=== PATIENT | female | born 1970 | race Hispanic/Latino ===

== ENCOUNTER 2021-05-17 14:39 | Inpatient (IN) | payer BC, OTHER ==
[~2021-05-17] VITALS: Ht 180.3 cm; Wt 95.7 kg
[~2021-05-17 14:39] MED LIST: CIPRO500 MG PO; DICLOFENAC POTA50 MG PO; DOXYCYCLINE HY100 MG PO; FLAGYL500 MG PO; HYDROCODON-ACE1 EA11 PO; NORCO 5-325 TA1 EACH PO; STOOL SOFT-STI1 EACH PO; TYLENOL WITH C1 EACH PO; ZOFRAN ODT4 MG PO
[2021-05-17 15:45] LABS: BASOPHILS % 0.5 % (0.0-1.0); EOSINOPHILS # (AUTO) 0.1 (0.0-0.4); EOSINOPHILS % 1.1 % (0.0-6.0); HEMATOCRIT 46.4 % (34.2-44.1); HEMOGLOBIN 14.9 g/dL (12.0-16.0); LYMPHOCYTES # (AUTO) 2.2 (1.0-3.2); LYMPHOCYTES % 30.3 % (18.0-39.1); MEAN CORPUSCULAR HEMOGLOBIN 26.9 pg (28-32); MEAN CORPUSCULAR HGB CONC 32.1 g/dL (31-35); MEAN CORPUSCULAR VOLUME 83.8 fL (81-99); MONOCYTES # (AUTO) 0.5 (0.2-0.8); MONOCYTES % 6.1 % (4.4-11.3); NEUTROPHILS # (AUTO) 4.5 (2.1-6.9); NEUTROPHILS % 61.7 % (38.7-80.0); PLATELET COUNT 237 x10e3/uL (140-360); RED BLOOD COUNT 5.54 x10e6/uL (3.6-5.1); RED CELL DISTRIBUTION WIDTH 13.3 % (11.7-14.4)
[2021-05-17 15:59] LABS: ALANINE AMINOTRANSFERASE 88 IU/L (0-55); ALBUMIN 3.6 g/dL (3.5-5.0); ALBUMIN/GLOBULIN RATIO 0.9 (0.8-2.0); ALKALINE PHOSPHATASE 172 IU/L (40-150); ANION GAP 14.2 mmol/L (8-16); BLOOD UREA NITROGEN 11 mg/dL (7-26); BUN/CREATININE RATIO 14 (6-25); CALCIUM 10.3 mg/dL (8.4-10.2); CARBON DIOXIDE 23 mmol/L (22-29); CHLORIDE 106 mmol/L (98-107); CREATINE KINASE 35 IU/L (29-168); CREATININE, SERUM 0.78 mg/dL (0.57-1.11); EST GLOMERULAR FILTRATION RATE 78 ML/MIN (60-); GLUCOSE 211 mg/dL (74-118); POTASSIUM 4.2 mmol/L (3.5-5.1); SODIUM 139 mmol/L (136-145)
[2021-05-17 16:07] LABS: CLARITY,URINE CLOUDY (CLEAR); COLOR,URINE AMBER (YELLOW); KETONES,URINE 1+ (NEGATIVE); LEUKOCYTE ESTERASE ,URINE TRACE (NEGATIVE); NITRITE,URINE POSITIVE (NEGATIVE); PROTEIN,URINE DIPSTICK >=300 (NEGATIVE); URINE UROBILINOGEN 0.2 mg/dL (0.2 - 1)
[2021-05-17 16:18] LABS: BACTERIA,URINE MANY /HPF
[2021-05-17] MEDS ORDERED: CEFTRIAXONE 1 GM in SODIUM CHLORIDE 0.9% 50ML 50 ML IV ONE (17:30)
[2021-05-17] MEDS ORDERED: MORPHINE SULFATE INJ 4 MG/ML INJ 1ML IV PRN (18:00)
[2021-05-17] MEDS ORDERED: IOPAMIDOL 370 MG/ML 200 ML INFUS..BTL INJ ONE (18:18)
[2021-05-17] MEDS ORDERED: SODIUM CHLORIDE 0.9% 50ML 50 ML ONE ×2 (18:18→20:55)
[2021-05-17] MEDS: SODIUM CHLORIDE 0.9% 1000ML 1,000 ML IV SCH (20:49)
[2021-05-17] MEDS ORDERED: CEFTRIAXONE 1 GM VIAL ONE (20:55)
[2021-05-17 21:00] VITALS: BP 152/80
[2021-05-17 22:27] VITALS: BP 152/80
[2021-05-18] VITALS (7 sets, daily range): BP systolic 134–163; BP diastolic 80–94
[2021-05-18] MEDS: ONDANSETRON HCL INJ 2MG/ML 2ML 2 MG/ML VIAL IV PRN ×3 (00:57→23:30)
[2021-05-18] MEDS ORDERED: FARXIGA5 MG PO (02:13)
[2021-05-18] MEDS ORDERED: METFORMIN HCL500 MG PO (02:14)
[2021-05-18] MEDS ORDERED: ATORVASTATIN CA20 MG PO (02:17)
[2021-05-18] MEDS ORDERED: MECLIZINE HCL12.5 MG PO (02:19)
[2021-05-18] MEDS ORDERED: LEXAPRO20 MG PO (02:21)
[2021-05-18] MEDS ORDERED: LOSARTAN POTASS50 MG PO (02:23)
[2021-05-18 05:29] LABS: BASOPHILS % 0.4 % (0.0-1.0); EOSINOPHILS # (AUTO) 0.1 (0.0-0.4); EOSINOPHILS % 1.7 % (0.0-6.0); HEMATOCRIT 42.1 % (34.2-44.1); HEMOGLOBIN 13.2 g/dL (12.0-16.0); LYMPHOCYTES # (AUTO) 1.8 (1.0-3.2); LYMPHOCYTES % 23.5 % (18.0-39.1); MEAN CORPUSCULAR HEMOGLOBIN 26.9 pg (28-32); MEAN CORPUSCULAR HGB CONC 31.4 g/dL (31-35); MEAN CORPUSCULAR VOLUME 85.9 fL (81-99); MONOCYTES # (AUTO) 0.6 (0.2-0.8); MONOCYTES % 7.1 % (4.4-11.3); NEUTROPHILS # (AUTO) 5.2 (2.1-6.9); PLATELET COUNT 219 x10e3/uL (140-360); RED CELL DISTRIBUTION WIDTH 13.6 % (11.7-14.4)
[2021-05-18 06:01] LABS: INR 0.95; PARTIAL THROMBOPLASTIN TIME 24.1 seconds (23.8-35.5); PROTHROMBIN TIME 12.9 seconds (11.9-14.5)
[2021-05-18 06:03] LABS: ANION GAP 13.1 mmol/L (8-16); CALCIUM 9.7 mg/dL (8.4-10.2); CREATININE, SERUM 0.73 mg/dL (0.57-1.11); POTASSIUM 4.1 mmol/L (3.5-5.1)
[2021-05-18] MEDS: SODIUM CHLORIDE 0.9% 1000ML 1,000 ML IV SCH ×2 (06:30→16:40)
[2021-05-18] MEDS ORDERED: PROMETHAZINE 25MG/ NS 50ML (IV) IV ONE (09:25)
[2021-05-18] MEDS: INSULIN REGULAR, HUMAN 100 UNIT/1 ML SQ SCH ×3 (12:00→21:00)
[2021-05-18] MEDS ORDERED: DEXTROSE 50% SYRINGE 50 ML IV PRN (12:00)
[2021-05-18] MEDS: ACETAMINOPHEN 325 MG TAB PO PRN (12:04)
[2021-05-18] MEDS: HYDROMORPHONE 1MG/1ML INJ IV PRN ×2 (14:54→23:30)
[2021-05-19] VITALS (7 sets, daily range): BP systolic 125–146; BP diastolic 78–95
[2021-05-19] MEDS: SODIUM CHLORIDE 0.9% 1000ML 1,000 ML IV SCH ×3 (02:00→17:15)
[2021-05-19 05:27] LABS: MEAN CORPUSCULAR HEMOGLOBIN 26.7 pg (28-32); MEAN CORPUSCULAR HGB CONC 30.4 g/dL (31-35); MEAN CORPUSCULAR VOLUME 87.6 fL (81-99); PLATELET COUNT 299 x10e3/uL (140-360); RED BLOOD COUNT 5.25 x10e6/uL (3.6-5.1); RED CELL DISTRIBUTION WIDTH 13.8 % (11.7-14.4)
[2021-05-19 05:44] LABS: ANION GAP 11.5 mmol/L (8-16); CALCIUM 10.4 mg/dL (8.4-10.2); CREATININE, SERUM 0.78 mg/dL (0.57-1.11); POTASSIUM 3.5 mmol/L (3.5-5.1)
[2021-05-19] MEDS: INSULIN REGULAR, HUMAN 100 UNIT/1 ML SQ SCH ×4 (07:43→20:29)
[2021-05-19] MEDS: ONDANSETRON HCL INJ 2MG/ML 2ML 2 MG/ML VIAL IV PRN ×4 (07:48→21:55)
[2021-05-19] MEDS: ACETAMINOPHEN 325 MG TAB PO PRN ×2 (07:48→21:55)
[2021-05-19] MEDS: HYDROMORPHONE 1MG/1ML INJ IV PRN ×3 (12:04→20:30)
[2021-05-19] MEDS ORDERED: B&O 60MG R/S 60 MG SUPP PR ONE (12:31)
[2021-05-19] MEDS ORDERED: IOPAMIDOL 300MG/ML 50ML INFUS..BTL IV ONE (12:32)
[2021-05-19] MEDS ORDERED: MIDAZOLAM HCL 2 MG/2 ML VIAL ONE (12:41)
[2021-05-19] MEDS ORDERED: FENTANYL CITRATE/PF 100MCG/2 ML INJ ONE (12:41)
[2021-05-19] MEDS ORDERED: LIDOCAINE HCL 2% LOCAL INJ 5 ML SDV VIAL INJ ONE (12:56)
[2021-05-19] MEDS ORDERED: PROPOFOL IV EMULSION 10 MG/ML 20 ML VIAL ONE (12:56)
[2021-05-19] MEDS ORDERED: POVIDONE IODINE 0.05% 0.05 % ML PO ONE (12:56)
[2021-05-19] MEDS ORDERED: SEVOFLURANE INHAL SOLN 250 ML PEN BTL ONE (12:56)
[2021-05-19] MEDS ORDERED: PHENYLEPHRINE HCL 1% 10 MG/ML VIAL ONE (12:56)
[2021-05-19] MEDS ORDERED: ONDANSETRON HCL INJ 2MG/ML 2ML 2 MG/ML VIAL ONE (12:56)
[2021-05-19] MEDS: CEFTRIAXONE 1 GM in SODIUM CHLORIDE 0.9% 50ML 50 ML IV SCH (20:31)
[2021-05-20] VITALS (8 sets, daily range): BP systolic 140–153; BP diastolic 80–90
[2021-05-20] MEDS: SODIUM CHLORIDE 0.9% 1000ML 1,000 ML IV SCH ×3 (01:37→17:04)
[2021-05-20] MEDS: ONDANSETRON HCL INJ 2MG/ML 2ML 2 MG/ML VIAL IV PRN ×3 (05:26→17:04)
[2021-05-20] MEDS: HYDROMORPHONE 1MG/1ML INJ IV PRN ×3 (05:26→17:04)
[2021-05-20 06:15] LABS: BASOPHILS % 0.3 % (0.0-1.0); EOSINOPHILS # (AUTO) 0.1 (0.0-0.4); EOSINOPHILS % 1.8 % (0.0-6.0); HEMATOCRIT 38.1 % (34.2-44.1); HEMOGLOBIN 11.5 g/dL (12.0-16.0); LYMPHOCYTES # (AUTO) 2.3 (1.0-3.2); LYMPHOCYTES % 34.4 % (18.0-39.1); MEAN CORPUSCULAR HEMOGLOBIN 26.7 pg (28-32); MEAN CORPUSCULAR HGB CONC 30.2 g/dL (31-35); MEAN CORPUSCULAR VOLUME 88.6 fL (81-99); MONOCYTES # (AUTO) 0.4 (0.2-0.8); MONOCYTES % 6.3 % (4.4-11.3); NEUTROPHILS # (AUTO) 3.8 (2.1-6.9); PLATELET COUNT 193 x10e3/uL (140-360); RED CELL DISTRIBUTION WIDTH 13.9 % (11.7-14.4)
[2021-05-20 06:41] LABS: ANION GAP 10.8 mmol/L (8-16); CALCIUM 9.2 mg/dL (8.4-10.2); CREATININE, SERUM 0.7 mg/dL (0.57-1.11); POTASSIUM 3.8 mmol/L (3.5-5.1)
[2021-05-20] MEDS: INSULIN REGULAR, HUMAN 100 UNIT/1 ML SQ SCH ×4 (08:28→20:20)
[2021-05-20] MEDS: POLYETHYLENE GLYCOL 3350 17 GM PACK PO SCH (11:33)
[2021-05-20] MEDS ORDERED: PHENAZOPYRIDINE HCL 100 MG TAB PO PRN (11:45)
[2021-05-20] MEDS: CEFTRIAXONE 1 GM in SODIUM CHLORIDE 0.9% 50ML 50 ML IV SCH (20:20)
[2021-05-21 00:13] VITALS: BP 147/82
[2021-05-21] MEDS: SODIUM CHLORIDE 0.9% 1000ML 1,000 ML IV SCH ×2 (01:06→10:24)
[2021-05-21] MEDS: HYDROMORPHONE 1MG/1ML INJ IV PRN ×2 (01:12→09:30)
[2021-05-21] MEDS: ONDANSETRON HCL INJ 2MG/ML 2ML 2 MG/ML VIAL IV PRN ×2 (01:12→09:30)
[2021-05-21 05:03] VITALS: BP 137/89
[2021-05-21 06:04] LABS: BASOPHILS % 0.5 % (0.0-1.0); EOSINOPHILS # (AUTO) 0.2 (0.0-0.4); EOSINOPHILS % 2.8 % (0.0-6.0); HEMATOCRIT 38.3 % (34.2-44.1); HEMOGLOBIN 11.5 g/dL (12.0-16.0); LYMPHOCYTES # (AUTO) 2.5 (1.0-3.2); LYMPHOCYTES % 40.5 % (18.0-39.1); MEAN CORPUSCULAR HEMOGLOBIN 26.7 pg (28-32); MEAN CORPUSCULAR VOLUME 88.9 fL (81-99); MONOCYTES # (AUTO) 0.4 (0.2-0.8); MONOCYTES % 6.6 % (4.4-11.3); NEUTROPHILS # (AUTO) 3.1 (2.1-6.9); NEUTROPHILS % 49.3 % (38.7-80.0); PLATELET COUNT 197 x10e3/uL (140-360); RED BLOOD COUNT 4.31 x10e6/uL (3.6-5.1); RED CELL DISTRIBUTION WIDTH 13.8 % (11.7-14.4)
[2021-05-21 06:25] LABS: CALCIUM 9.1 mg/dL (8.4-10.2); CREATININE, SERUM 0.77 mg/dL (0.57-1.11)
[2021-05-21 07:20] VITALS: BP 137/89
[2021-05-21 07:32] LABS: ALBUMIN 2.7 g/dL (3.5-5.0); BILIRUBIN,DIRECT 0.1 mg/dL (0.0-0.5)
[2021-05-21 08:35] VITALS: BP 177/99
[2021-05-21] MEDS: INSULIN REGULAR, HUMAN 100 UNIT/1 ML SQ SCH (08:45)
[2021-05-21] MEDS: POLYETHYLENE GLYCOL 3350 17 GM PACK PO SCH (08:45)
[2021-05-21] MEDS ORDERED: PYRIDIUM200 MG PO (09:06)
[2021-05-21] MEDS ORDERED: OXYBUTYNIN CHLOR5 MG PO (09:10)
[2021-05-21] MEDS ORDERED: CEFUROXIME500 MG PO (09:10)
[2021-05-21] MEDS ORDERED: ONDANSETRON ODT4 MG PO (09:14)
[2021-05-21] MEDS: ACETAMINOPHEN 325 MG TAB PO PRN (10:25)
== END 2021-05-21 11:51 | disposition home or self-care (01) | DRG 660 ==
LOC: ER 16:52 → ERHOLD 18:21 → MED/SURG3 22:25
PROVIDERS: ADMIT Internal Medicine; ATTEND Internal Medicine
PROC: BT141ZZ Fluoroscopy of Kidneys, Ureters and Bladder using Low Osmolar Contrast (ICD-10-PCS; 2021-05-19)
PROC: 0T768DZ Dilation of Right Ureter with Intraluminal Device, Via Natural or Artificial Opening Endoscopic (ICD-10-PCS; principal; 2021-05-19 17:00)
DX: N13.6 Pyonephrosis (principal); Z16.29 Resistance to other single specified antibiotic; N10 Acute pyelonephritis; E78.5 Hyperlipidemia, unspecified; F41.9 Anxiety disorder, unspecified; F32.9 Major depressive disorder, single episode, unspecified; E11.65 Type 2 diabetes mellitus with hyperglycemia; N39.46 Mixed incontinence; E83.52 Hypercalcemia; N28.1 Cyst of kidney, acquired; Z20.822 Contact with and (suspected) exposure to COVID-19; R19.7 Diarrhea, unspecified; R10.9 Unspecified abdominal pain; B96.20 Unspecified Escherichia coli [E. coli] as the cause of diseases classified elsewhere; E78.00 Pure hypercholesterolemia, unspecified; E66.9 Obesity, unspecified; Z68.29 Body mass index [BMI] 29.0-29.9, adult; I10 Essential (primary) hypertension; R31.0 Gross hematuria; Z96.0 Presence of urogenital implants
CPT/HCPCS: 36415; 74018; 74177; 74420; 76705; 80048; 80053; 80076; 81001; 81025; 82550; 82553; 82948; 83690; 84484; 85007; 85025; 85027; 85610; 85730; 87086; 87186; 93005; 96361; 99251; 99284; C1758; C2617; J0696; J1170; J1817; J2001; J2250; J2270; J2370; J2405; J2550; J3010; J7030; Q9967; U0002

== ENCOUNTER → 2021-06-07 | Day surgery (SDC) | payer BC ==
[2021-06-05 15:17] LABS: BASOPHILS % 0.5 % (0.0-1.0); EOSINOPHILS # (AUTO) 0.1 (0.0-0.4); EOSINOPHILS % 1.8 % (0.0-6.0); HEMATOCRIT 43.8 % (34.2-44.1); HEMOGLOBIN 13.4 g/dL (12.0-16.0); LYMPHOCYTES % 30.2 % (18.0-39.1); MEAN CORPUSCULAR HEMOGLOBIN 26.6 pg (28-32); MEAN CORPUSCULAR HGB CONC 30.6 g/dL (31-35); MEAN CORPUSCULAR VOLUME 87.1 fL (81-99); MONOCYTES # (AUTO) 0.3 (0.2-0.8); MONOCYTES % 4.7 % (4.4-11.3); NEUTROPHILS # (AUTO) 4.1 (2.1-6.9); NEUTROPHILS % 62.5 % (38.7-80.0); PLATELET COUNT 223 x10e3/uL (140-360); RED BLOOD COUNT 5.03 x10e6/uL (3.6-5.1); RED CELL DISTRIBUTION WIDTH 13.4 % (11.7-14.4)
[2021-06-05 15:23] LABS: ANION GAP 11.2 mmol/L (8-16); CALCIUM 10.2 mg/dL (8.4-10.2); CREATININE, SERUM 0.91 mg/dL (0.57-1.11); POTASSIUM 4.2 mmol/L (3.5-5.1)
[~2021-06-07] MED LIST changes: +ATORVASTATIN CA20 MG PO; +CEFTRIAXONE 1 GM VIAL ONE; +CEFUROXIME500 MG PO; +FARXIGA5 MG PO; +FENTANYL CITRATE/PF 100MCG/2 ML INJ ONE; +HYDROMORPHONE 1MG/1ML INJ ONE; +LACTATED RINGER'S 1,000 ML ONE; +LEXAPRO20 MG PO; +LOSARTAN POTASS50 MG PO; +MECLIZINE HCL12.5 MG PO; +METFORMIN HCL500 MG PO; +ONDANSETRON HCL INJ 2MG/ML 2ML 2 MG/ML VIAL ONE; +ONDANSETRON ODT4 MG PO; +OXYBUTYNIN CHLOR5 MG PO; +PYRIDIUM200 MG PO; +SODIUM CHLORIDE 0.9% 50ML 100 ML ONE
[2021-06-07 08:45] VITALS: BP 155/90
== END | disposition home or self-care (01) ==
LOC: OR 06:03
PROVIDERS: ATTEND Urology
DX: N20.0 Calculus of kidney (principal); N39.0 Urinary tract infection, site not specified; R32 Unspecified urinary incontinence; Z01.812 Encounter for preprocedural laboratory examination; Z01.818 Encounter for other preprocedural examination; Z20.822 Contact with and (suspected) exposure to COVID-19; I10 Essential (primary) hypertension; E11.9 Type 2 diabetes mellitus without complications; Z87.442 Personal history of urinary calculi; Z96.0 Presence of urogenital implants; Z79.84 Long term (current) use of oral hypoglycemic drugs
CPT/HCPCS: 36415 ×2; 50590; 74018; 80048; 82948; 84550; 85025; J0696; J1170; J2405; J3010; J7121; U0002

== ENCOUNTER → 2021-06-23 | Day surgery (SDC) | payer BC ==
[~2021-06-23] MED LIST changes: +ACETAMINOPHEN/1 EAC1 PO; +ACETAMINOPHEN/CODEINE 300MG - 30MG TAB ONE; +BELLADONNA/OPIUM 30 MG SUPP RC ONE; -CEFTRIAXONE 1 GM VIAL ONE; +DEXAMETHASONE SOD PHOS INJ 4 MG/ML VIAL ONE; +GENTAMICIN 80MG/NS 100 ML 200 ML IV ONE; +IOPAMIDOL 300MG/ML 50ML INFUS..BTL IV ONE; -LACTATED RINGER'S 1,000 ML ONE; +LIDOCAINE HCL 2% LOCAL INJ 5 ML SDV VIAL INJ ONE; +METOCLOPRAMIDE HCL 10 MG/2ML VIAL ONE; +PIPERACILLIN/TAZOBACTAM 3.375 GM VIAL ONE; +POVIDONE IODINE 0.05% 0.05 % ML PO ONE; +PROPOFOL IV EMULSION 10 MG/ML 20 ML VIAL ONE; +SEVOFLURANE INHAL SOLN 250 ML PEN BTL ONE; -SODIUM CHLORIDE 0.9% 50ML 100 ML ONE; +SODIUM CHLORIDE 0.9% 50ML 50 ML ONE
[2021-06-23 14:45] VITALS: BP 166/98
== END | disposition home or self-care (01) ==
LOC: OR 11:33
PROVIDERS: ATTEND Urology
DX: N20.1 Calculus of ureter (principal); N20.0 Calculus of kidney; Z46.6 Encounter for fitting and adjustment of urinary device; N28.89 Other specified disorders of kidney and ureter; N13.30 Unspecified hydronephrosis; N81.10 Cystocele, unspecified; N81.6 Rectocele; N36.41 Hypermobility of urethra; I10 Essential (primary) hypertension; E78.5 Hyperlipidemia, unspecified; E11.9 Type 2 diabetes mellitus without complications; Z01.818 Encounter for other preprocedural examination; Z01.812 Encounter for preprocedural laboratory examination; Z20.822 Contact with and (suspected) exposure to COVID-19; Z79.84 Long term (current) use of oral hypoglycemic drugs
CPT/HCPCS: 36415; 52332; 52352; 74018; 74420; 82948; 87086; 88300; C1766; C1769; C2617; J1170; J1580; J2405; J2543; J2765; Q9967; U0002; J1100; J2001; J3010

== ENCOUNTER → 2021-07-26 | Day surgery (SDC) | payer BC ==
[2021-07-24 15:09] LABS: BASOPHILS # (AUTO) 0.1 (0.0-0.1); BASOPHILS % 0.6 % (0.0-1.0); EOSINOPHILS # (AUTO) 0.1 (0.0-0.4); HEMATOCRIT 46.6 % (34.2-44.1); HEMOGLOBIN 14.5 g/dL (12.0-16.0); LYMPHOCYTES # (AUTO) 2.7 (1.0-3.2); LYMPHOCYTES % 34.4 % (18.0-39.1); MEAN CORPUSCULAR HGB CONC 31.1 g/dL (31-35); MEAN CORPUSCULAR VOLUME 86.6 fL (81-99); MONOCYTES # (AUTO) 0.4 (0.2-0.8); MONOCYTES % 4.8 % (4.4-11.3); NEUTROPHILS # (AUTO) 4.6 (2.1-6.9); NEUTROPHILS % 58.9 % (38.7-80.0); PLATELET COUNT 299 x10e3/uL (140-360); RED BLOOD COUNT 5.38 x10e6/uL (3.6-5.1); RED CELL DISTRIBUTION WIDTH 13.8 % (11.7-14.4)
[2021-07-24 15:26] LABS: ANION GAP 12.3 mmol/L (8-16); CALCIUM 10.6 mg/dL (8.4-10.2); CREATININE, SERUM 1.18 mg/dL (0.57-1.11); POTASSIUM 4.3 mmol/L (3.5-5.1)
[~2021-07-26] MED LIST changes: -ACETAMINOPHEN/CODEINE 300MG - 30MG TAB ONE; +CEFTRIAXONE 1 GM VIAL ONE; -DEXAMETHASONE SOD PHOS INJ 4 MG/ML VIAL ONE; -GENTAMICIN 80MG/NS 100 ML 200 ML IV ONE; -HYDROMORPHONE 1MG/1ML INJ ONE; +INSULIN REGULAR, HUMAN 100 UNIT/1 ML ONE; -LIDOCAINE HCL 2% LOCAL INJ 5 ML SDV VIAL INJ ONE; -PIPERACILLIN/TAZOBACTAM 3.375 GM VIAL ONE; -POVIDONE IODINE 0.05% 0.05 % ML PO ONE; -PROPOFOL IV EMULSION 10 MG/ML 20 ML VIAL ONE; -SEVOFLURANE INHAL SOLN 250 ML PEN BTL ONE
[2021-07-26 10:50] VITALS: BP 162/85
== END | disposition home or self-care (01) ==
LOC: OR 07:42
PROVIDERS: ATTEND Urology
DX: N20.0 Calculus of kidney (principal); N28.89 Other specified disorders of kidney and ureter; Q63.8 Other specified congenital malformations of kidney; Z46.6 Encounter for fitting and adjustment of urinary device; N13.30 Unspecified hydronephrosis; N28.1 Cyst of kidney, acquired; N39.0 Urinary tract infection, site not specified; N81.6 Rectocele; N36.41 Hypermobility of urethra; E11.22 Type 2 diabetes mellitus with diabetic chronic kidney disease; I12.9 Hypertensive chronic kidney disease with stage 1 through stage 4 chronic kidney disease, or unspecified chronic kidney disease; N18.9 Chronic kidney disease, unspecified; R80.9 Proteinuria, unspecified; R81 Glycosuria; N81.89 Other female genital prolapse; E66.9 Obesity, unspecified; Z01.812 Encounter for preprocedural laboratory examination; Z01.818 Encounter for other preprocedural examination; Z20.822 Contact with and (suspected) exposure to COVID-19; Z79.84 Long term (current) use of oral hypoglycemic drugs; Z68.31 Body mass index [BMI] 31.0-31.9, adult
CPT/HCPCS: 36415 ×2; 52352; 74018; 74420; 80048; 82948; 84550; 85025; 88300; C1769; J0696; J2405; J2765; J3010; Q9967; U0002; J1817

== ENCOUNTER 2025-03-11 19:07 | Inpatient (IN) | payer BC, OTHER ==
[~2025-03-11] VITALS: Ht 180.3 cm; Wt 95.7 kg
[~2025-03-11 19:07] MED LIST changes: -BELLADONNA/OPIUM 30 MG SUPP RC ONE; -CEFTRIAXONE 1 GM VIAL ONE; -FENTANYL CITRATE/PF 100MCG/2 ML INJ ONE; -INSULIN REGULAR, HUMAN 100 UNIT/1 ML ONE; -IOPAMIDOL 300MG/ML 50ML INFUS..BTL IV ONE; -METOCLOPRAMIDE HCL 10 MG/2ML VIAL ONE; -ONDANSETRON HCL INJ 2MG/ML 2ML 2 MG/ML VIAL ONE; -SODIUM CHLORIDE 0.9% 50ML 50 ML ONE
[2025-03-11 19:15] VITALS: TEMP 98.9
[2025-03-11 19:56] LABS: BASOPHILS % 0.2 % (0.0-1.0); EOSINOPHILS % 0.4 % (0.0-6.0); HEMATOCRIT 39.9 % (34.2-44.1); HEMOGLOBIN 12.9 g/dL (12.0-16.0); LYMPHOCYTES # (AUTO) 1.3 (1.0-3.2); LYMPHOCYTES % 14.1 % (18.0-39.1); MEAN CORPUSCULAR HEMOGLOBIN 27.2 pg (28-32); MEAN CORPUSCULAR HGB CONC 32.3 g/dL (31-35); MEAN CORPUSCULAR VOLUME 84.2 fL (81-99); MONOCYTES # (AUTO) 0.5 (0.2-0.8); MONOCYTES % 5.3 % (4.4-11.3); NEUTROPHILS # (AUTO) 7.4 (2.1-6.9); NEUTROPHILS % 79.9 % (38.7-80.0); PLATELET COUNT 247 x10e3/uL (140-360); RED BLOOD COUNT 4.74 x10e6/uL (3.6-5.1); RED CELL DISTRIBUTION WIDTH 13.5 % (11.7-14.4); WHITE BLOOD COUNT 9.31 x10e3/uL (4.8-10.8)
[2025-03-11] MEDS: KETOROLAC TROMETHAMINE 30 MG/ML VIAL IV STA (20:02)
[2025-03-11 20:19] LABS: ALBUMIN 3.9 g/dL (3.5-5.0); ALBUMIN/GLOBULIN RATIO 1.3 (0.8-2.0); ANION GAP 13.7 mmol/L (8-16); BILIRUBIN,TOTAL 0.3 mg/dL (0.2-1.2); CALCIUM 9.3 mg/dL (8.4-10.2); CREATININE, SERUM 1.17 mg/dL (0.57-1.11); POTASSIUM 3.7 mmol/L (3.5-5.1)
[2025-03-11] MEDS ORDERED: ONDANSETRON HCL INJ 2MG/ML 2ML 2 MG/ML VIAL IV PRN (21:00)
[2025-03-11] MEDS ORDERED: Morphine 4mg INJECTION 4 MG/ML INJ IV PRN (21:00)
[2025-03-11] MEDS: SODIUM CHLORIDE 0.9% 1000ML 1,000 ML IV SCH (21:41)
[2025-03-11 22:16] LABS: COLOR,URINE YELLOW (YELLOW); LEUKOCYTE ESTERASE ,URINE TRACE (NEGATIVE); NITRITE,URINE POSITIVE (NEGATIVE); PH,URINE 5.5 (5 - 7); PROTEIN,URINE DIPSTICK 1+ (NEGATIVE)
[2025-03-11 22:17] LABS: BILIRUBIN,URINE NEGATIVE (NEGATIVE); CLARITY,URINE HAZY (CLEAR); GLUCOSE, URINE NEGATIVE (NEGATIVE); KETONES,URINE NEGATIVE (NEGATIVE); URINE UROBILINOGEN 0.2 mg/dL (0.2 - 1)
[2025-03-11 22:19] LABS: WBC,URINE (MAN) 21-50 /HPF (0-5)
[2025-03-11 22:20] LABS: BACTERIA,URINE MANY /HPF; RBC,URINE >50 /HPF (0-5)
[2025-03-11 22:21] VITALS: PULSE 75; RESP 16; O2SAT 100
[2025-03-12] VITALS (7 sets, daily range): BP systolic 125–157; BP diastolic 75–88; PULSE 66–75; RESP 15–20; TEMP 97.5–97.8; O2SAT 98–100
[2025-03-12] MEDS: HYDROMORPHONE 1MG/1ML INJ IV ONE (09:16)
[2025-03-12] MEDS ORDERED: FENTANYL CITRATE/PF 100MCG/2 ML INJ ONE (13:44)
[2025-03-12] MEDS ORDERED: MIDAZOLAM HCL 2 MG/2 ML VIAL ONE (13:45)
[2025-03-12] MEDS ORDERED: ACETAMINOPHEN 1000 MG/100 ML 100 ML IV ONE (13:45)
[2025-03-12] MEDS ORDERED: PROPOFOL IV EMULSION 10 MG/ML 20 ML VIAL ONE (13:45)
[2025-03-12] MEDS ORDERED: DEXAMETHASONE SOD PHOS INJ 4 MG/ML SDV ONE ×2 (13:46→14:11)
[2025-03-12] MEDS ORDERED: LIDOCAINE HCL 2% LOCAL INJ 5 ML SDV VIAL INJ ONE (13:46)
[2025-03-12] MEDS ORDERED: EPHEDRINE SULFATE INJ 50 MG/ML VIAL ONE (13:46)
[2025-03-12] MEDS ORDERED: ONDANSETRON HCL INJ 2MG/ML 2ML 2 MG/ML VIAL ONE ×2 (14:11→14:47)
[2025-03-12] MEDS ORDERED: CEFTRIAXONE 1 GM VIAL ONE (14:41)
[2025-03-12] MEDS ORDERED: ACETAMINOPHEN 1000 MG/100 ML IV PRN (16:15)
[2025-03-12] MEDS ORDERED: DIPHENHYDRAMINE HCL 25 MG CAP PO PRN (16:15)
[2025-03-12] MEDS: SODIUM CHLORIDE 0.9% 1000ML 1,000 ML IV SCH (16:15)
[2025-03-12] MEDS ORDERED: PHENAZOPYRIDINE HCL 100 MG TAB PO PRN ×2 (16:15)
[2025-03-12] MEDS: SENNA-S TABLET PO SCH (17:00)
[2025-03-12] MEDS: ONDANSETRON HCL INJ 2MG/ML 2ML 2 MG/ML VIAL IV PRN (22:43)
[2025-03-12] MEDS: TRAMADOL HCL 50 MG TAB PO PRN (22:43)
[2025-03-12] MEDS ORDERED: ACETAMINOPHEN 325 MG TAB PO PRN (22:45)
[2025-03-12] MEDS ORDERED: HYDRALAZINE HCL 20 MG/ML VIAL IV PRN (22:45)
[2025-03-12] MEDS ORDERED: DEXTROSE 50% SYRINGE 50 ML IV PRN (22:45)
[2025-03-13] VITALS (9 sets, daily range): BP systolic 121–180; BP diastolic 53–92; PULSE 64–88; RESP 16–20; TEMP 97.6–98; O2SAT 96–100
[2025-03-13] MEDS: INSULIN REGULAR, HUMAN 100 UNIT/1 ML SQ SCH (07:30)
[2025-03-13 08:33] LABS: BASOPHILS % 0.1 % (0.0-1.0); EOSINOPHILS % 0.2 % (0.0-6.0); HEMATOCRIT 36.9 % (34.2-44.1); HEMOGLOBIN 11.8 g/dL (12.0-16.0); LYMPHOCYTES # (AUTO) 1.8 (1.0-3.2); LYMPHOCYTES % 17.6 % (18.0-39.1); MEAN CORPUSCULAR HEMOGLOBIN 27.6 pg (28-32); MEAN CORPUSCULAR VOLUME 86.2 fL (81-99); MONOCYTES # (AUTO) 0.5 (0.2-0.8); MONOCYTES % 4.3 % (4.4-11.3); NEUTROPHILS # (AUTO) 8.1 (2.1-6.9); NEUTROPHILS % 77.6 % (38.7-80.0); PLATELET COUNT 235 x10e3/uL (140-360); RED BLOOD COUNT 4.28 x10e6/uL (3.6-5.1); RED CELL DISTRIBUTION WIDTH 13.5 % (11.7-14.4); WHITE BLOOD COUNT 10.39 x10e3/uL (4.8-10.8)
[2025-03-13] MEDS: DOCUSATE SODIUM 100 MG CAP PO SCH (08:59)
[2025-03-13] MEDS: PANTOPRAZOLE SOD 40 MG TABEC PO SCH (08:59)
[2025-03-13] MEDS: SOLIFENACIN SUCCINATE 5 MG TAB PO SCH (08:59)
[2025-03-13 09:00] LABS: ALBUMIN 3.2 g/dL (3.5-5.0); BILIRUBIN,TOTAL 0.4 mg/dL (0.2-1.2); CALCIUM 8.7 mg/dL (8.4-10.2); CREATININE, SERUM 0.78 mg/dL (0.57-1.11); TOTAL PROTEIN 6.4 g/dL (6.5-8.1)
[2025-03-13] MEDS: OXYBUTYNIN CHLORIDE 5 MG TAB PO PRN (09:00)
[2025-03-13] MEDS ORDERED: ESCITALOPRAM OXALATE 10 MG TAB PO SCH (09:00)
[2025-03-13] MEDS: ATORVASTATIN 20 MG TAB PO SCH (09:00)
[2025-03-13] MEDS: PHENAZOPYRIDINE HCL 100 MG TAB PO SCH (09:00)
[2025-03-13] MEDS: MECLIZINE HCL 12.5 MG TAB PO SCH (09:00)
[2025-03-13] MEDS: LACTULOSE SYRUP 20 GM/30 ML UDC PO PRN (09:00)
[2025-03-13] MEDS: HYDROMORPHONE 1MG/1ML INJ IV PRN (09:01)
[2025-03-13 09:23] LABS: CHOL/HDL RATIO 3.9 (3.0-3.6); PHOSPHORUS 3.1 MG/DL (2.3-4.7)
[2025-03-13 09:45] LABS: FREE T4 (FREE THYROXINE) 0.89 ng/dL (0.8-1.8); THYROID STIMULATING HORMONE 0.541 uIU/mL (0.350-4.940)
[2025-03-13] MEDS: ACETAMINOPHEN/CODEINE 300MG - 30MG TAB PO PRN (21:31)
[2025-03-14] VITALS (9 sets, daily range): BP systolic 136–167; BP diastolic 75–89; PULSE 66–78; RESP 16–18; TEMP 97.7–98.1; O2SAT 98–100
[2025-03-14 07:18] LABS: BASOPHILS % 0.3 % (0.0-1.0); EOSINOPHILS # (AUTO) 0.1 (0.0-0.4); EOSINOPHILS % 1.9 % (0.0-6.0); HEMATOCRIT 34.2 % (34.2-44.1); HEMOGLOBIN 10.8 g/dL (12.0-16.0); LYMPHOCYTES # (AUTO) 2.3 (1.0-3.2); LYMPHOCYTES % 33.2 % (18.0-39.1); MEAN CORPUSCULAR HEMOGLOBIN 27.4 pg (28-32); MEAN CORPUSCULAR HGB CONC 31.6 g/dL (31-35); MEAN CORPUSCULAR VOLUME 86.8 fL (81-99); MONOCYTES # (AUTO) 0.4 (0.2-0.8); MONOCYTES % 5.1 % (4.4-11.3); NEUTROPHILS # (AUTO) 4.1 (2.1-6.9); NEUTROPHILS % 59.4 % (38.7-80.0); PLATELET COUNT 199 x10e3/uL (140-360); RED BLOOD COUNT 3.94 x10e6/uL (3.6-5.1); RED CELL DISTRIBUTION WIDTH 13.9 % (11.7-14.4); WHITE BLOOD COUNT 6.92 x10e3/uL (4.8-10.8)
[2025-03-14 07:27] LABS: ANION GAP 8.8 mmol/L (8-16); CALCIUM 8.1 mg/dL (8.4-10.2); CREATININE, SERUM 0.8 mg/dL (0.57-1.11); POTASSIUM 3.8 mmol/L (3.5-5.1)
[2025-03-15] VITALS (7 sets, daily range): BP systolic 149–171; BP diastolic 79–100; PULSE 69–81; RESP 17–19; TEMP 97.6–98.3; O2SAT 94–100
[2025-03-15] MEDS: ONDANSETRON HCL INJ 2MG/ML 2ML 2 MG/ML VIAL IV PRN (01:26)
[2025-03-15] MEDS: ACETAMINOPHEN/CODEINE 300MG - 30MG TAB PO PRN (01:26)
[2025-03-15 05:12] LABS: BASOPHILS % 0.5 % (0.0-1.0); EOSINOPHILS # (AUTO) 0.2 (0.0-0.4); EOSINOPHILS % 2.9 % (0.0-6.0); HEMATOCRIT 36.8 % (34.2-44.1); HEMOGLOBIN 11.4 g/dL (12.0-16.0); LYMPHOCYTES # (AUTO) 2.8 (1.0-3.2); LYMPHOCYTES % 36.7 % (18.0-39.1); MEAN CORPUSCULAR HEMOGLOBIN 27.5 pg (28-32); MEAN CORPUSCULAR VOLUME 88.7 fL (81-99); MONOCYTES # (AUTO) 0.5 (0.2-0.8); MONOCYTES % 6.5 % (4.4-11.3); NEUTROPHILS % 53.1 % (38.7-80.0); PLATELET COUNT 213 x10e3/uL (140-360); RED BLOOD COUNT 4.15 x10e6/uL (3.6-5.1); WHITE BLOOD COUNT 7.49 x10e3/uL (4.8-10.8)
[2025-03-15 05:44] LABS: CALCIUM 8.2 mg/dL (8.4-10.2); CREATININE, SERUM 0.82 mg/dL (0.57-1.11)
[2025-03-15] MEDS ORDERED: CYMBALTA20 MG PO (08:21)
[2025-03-15] MEDS ORDERED: ATIVAN0.5 MG PO (08:25)
[2025-03-15] MEDS: LOSARTAN POTASSIUM 25 MG TAB PO SCH (08:29)
[2025-03-15] MEDS: AMLODIPINE BESYLATE 5 MG TAB PO SCH (08:30)
[2025-03-15] MEDS ORDERED: NORVASC5 MG PO (18:37)
[2025-03-15] MEDS ORDERED: CEFUROXIME500 MG PO (18:37)
[2025-03-15] MEDS ORDERED: SENNA S TABLET1 EACH PO (18:37)
[2025-03-15] MEDS ORDERED: ACETAMINOPHEN325 M1 PO (18:37)
[2025-03-15] MEDS ORDERED: ULTRAM 50MG50 MG PO (18:37)
[2025-03-15] MEDS ORDERED: VESICARE5 MG PO (18:49)
[2025-03-15] MEDS ORDERED: VESICARE10 MG PO (18:49)
== END 2025-03-15 19:00 | disposition home or self-care (01) | DRG 661 ==
LOC: ER 19:36 → ERHOLD 21:56 → MED/SURG 03-12 11:56
PROVIDERS: ADMIT Internal Medicine; ATTEND Internal Medicine
PROC: BT141ZZ Fluoroscopy of Kidneys, Ureters and Bladder using Low Osmolar Contrast (ICD-10-PCS; 2025-03-12)
PROC: 0UJH7ZZ Inspection of Vagina and Cul-de-sac, Via Natural or Artificial Opening (ICD-10-PCS; 2025-03-12)
PROC: 0T778DZ Dilation of Left Ureter with Intraluminal Device, Via Natural or Artificial Opening Endoscopic (ICD-10-PCS; principal; 2025-03-12 14:29)
PROC: 0TF7XZZ Fragmentation in Left Ureter, External Approach (ICD-10-PCS; 2025-03-12 14:29)
DX: N13.6 Pyonephrosis (principal); N17.9 Acute kidney failure, unspecified; I10 Essential (primary) hypertension; E11.9 Type 2 diabetes mellitus without complications; E78.5 Hyperlipidemia, unspecified; E21.3 Hyperparathyroidism, unspecified; R31.0 Gross hematuria; N23 Unspecified renal colic; N28.1 Cyst of kidney, acquired; F41.9 Anxiety disorder, unspecified; F32.A Depression, unspecified; E66.9 Obesity, unspecified; Z68.29 Body mass index [BMI] 29.0-29.9, adult; Z79.84 Long term (current) use of oral hypoglycemic drugs; Z87.440 Personal history of urinary (tract) infections; Z90.710 Acquired absence of both cervix and uterus; Z88.5 Allergy status to narcotic agent; Z83.3 Family history of diabetes mellitus; Z82.49 Family history of ischemic heart disease and other diseases of the circulatory system; Z84.2 Family history of other diseases of the genitourinary system
CPT/HCPCS: 36415; 50590; 74176; 80048; 80053; 80061; 81001; 82948; 83036; 83735; 83970; 84100; 84439; 84443; 84550; 85025; 87086; 87186; 94799; 99284; C1758; C2617; J0360; J0696; J1100; J1171; J1885; J2003; J2250; J2405; J2470; J7030

== ENCOUNTER 2025-04-10 14:03 | Emergency (ER) | payer OTHER ==
[~2025-04-10] VITALS: Ht 180.3 cm; Wt 95.7 kg
[~2025-04-10 14:03] MED LIST changes: +ACETAMINOPHEN325 M1 PO; +ATIVAN0.5 MG PO; +CYMBALTA20 MG PO; +NORVASC5 MG PO; +SENNA S TABLET1 EACH PO; +ULTRAM 50MG50 MG PO; +VESICARE10 MG PO; +VESICARE5 MG PO
[2025-04-10 14:10] VITALS: PULSE 93; RESP 17; TEMP 97.7; O2SAT 100
[2025-04-10] MEDS: KETOROLAC TROMETHAMINE 60 MG/2 ML VIAL IM ONE (15:07)
== END 2025-04-10 15:14 | disposition home or self-care (01) ==
LOC: ER 14:13
DX: T16.2XXA Foreign body in left ear, initial encounter (principal); I10 Essential (primary) hypertension; E11.9 Type 2 diabetes mellitus without complications; E78.5 Hyperlipidemia, unspecified; F41.9 Anxiety disorder, unspecified; F32.A Depression, unspecified
CPT/HCPCS: 99282; J1885

== ENCOUNTER → 2025-04-23 | Day surgery (SDC) | payer OTHER ==
[2025-04-21 14:52] LABS: BASOPHILS % 0.4 % (0.0-1.0); EOSINOPHILS % 1.6 % (0.0-6.0); LYMPHOCYTES % 28.0 % (18.0-39.1); MONOCYTES % 5.2 % (4.4-11.3); NEUTROPHILS % 64.5 % (38.7-80.0); RED CELL DISTRIBUTION WIDTH 14.0 % (11.7-14.4)
[2025-04-21 15:13] LABS: EST GLOMERULAR FILTRATION RATE 85.0 ML/MIN (>=60)
[~2025-04-23] MED LIST changes: +ACETAMINOPHEN 1000 MG/100 ML 100 ML IV ONE; +DEXAMETHASONE SOD PHOS INJ 4 MG/ML SDV ONE; +FAMOTIDINE 20 MG/2 ML VIAL IV ONE; +FENTANYL CITRATE/PF 100MCG/2 ML INJ ONE; +GENTAMICIN 80MG/NS 100 ML 200 ML IV ONE; +LIDOCAINE HCL 2% LOCAL INJ 5 ML SDV VIAL INJ ONE; +MIDAZOLAM HCL 2 MG/2 ML VIAL ONE; +MOUNJARO15 MG/0.5 SC; +ONDANSETRON HCL INJ 2MG/ML 2ML 2 MG/ML VIAL ONE; +PHENTERMINE HCL30 MG PO; +PROPOFOL IV EMULSION 10 MG/ML 20 ML VIAL ONE; +SEVOFLURANE INHAL SOLN 250 ML PEN BTL ONE
[2025-04-23] MEDS: LACTATED RINGER'S 1,000 ML ONE (09:33)
[2025-04-23] MEDS: CEFTRIAXONE 1 GM VIAL ONE (09:33)
[2025-04-23 12:15] VITALS: TEMP 97.6
[2025-04-23] MEDS: MEPERIDINE HCL INJ 25 MG/ML VIAL ONE (12:50)
[2025-04-23] MEDS: ONDANSETRON HCL INJ 2MG/ML 2ML 2 MG/ML VIAL ONE (12:50)
[2025-04-23] MEDS: PHENAZOPYRIDINE HCL 100 MG TAB ONE (13:40)
[2025-04-23 14:05] VITALS: BP 155/96; PULSE 66; RESP 16; O2SAT 99
== END | disposition home or self-care (01) ==
LOC: OR 09:07
PROVIDERS: ATTEND Urology
DX: N20.2 Calculus of kidney with calculus of ureter (principal); Z46.6 Encounter for fitting and adjustment of urinary device; N81.2 Incomplete uterovaginal prolapse; N95.2 Postmenopausal atrophic vaginitis; N28.1 Cyst of kidney, acquired; Z87.440 Personal history of urinary (tract) infections; I10 Essential (primary) hypertension; E11.9 Type 2 diabetes mellitus without complications; Z79.84 Long term (current) use of oral hypoglycemic drugs; F41.8 Other specified anxiety disorders; E66.9 Obesity, unspecified; Z68.31 Body mass index [BMI] 31.0-31.9, adult; E78.5 Hyperlipidemia, unspecified; G47.33 Obstructive sleep apnea (adult) (pediatric); Z01.818 Encounter for other preprocedural examination; Z01.812 Encounter for preprocedural laboratory examination; Z01.810 Encounter for preprocedural cardiovascular examination; Z79.899 Other long term (current) drug therapy
CPT/HCPCS: 36415 ×2; 52332; 52352; 74018; 74420; 80048; 82948; 84550; 85025; 87086; 88300; 93005; C1769; J0131; J0696; J1100; J1308; J1580; J2003; J2175; J2250; J2405; J2704; J3010; J7121